=== PATIENT | female | born 1970 | race Two or more races ===

== ENCOUNTER 2020-02-08 09:34 | Outpatient (CLI) | payer MEDICAID ==
[~2020-02-08] VITALS: Ht 154.9 cm; Wt 67.2 kg
--- NOTE | 2020-02-08 13:15 | Consultation ---
DATE OF CONSULTATION: 02/08/2020 CONSULTING PHYSICIAN: Julio César Oden MD. CHIEF COMPLAINT: Lesion seen in the pancreas. HISTORY OF PRESENT ILLNESS: This is a 49-year-old female, had an episode of abdominal pain for which she had a CT of the abdomen and pelvis showed evidence of 12 mm lesion in the uncinate process, questionable for IPMN. So, the patient was referred to us for EUS. PAST MEDICAL HISTORY: Hypertension. PAST SURGICAL HISTORY: Cholecystectomy and x4. MEDICATIONS: Please see medication reconciliation list. FAMILY HISTORY: Father had leukemia. Mother had hypertension. SOCIAL HISTORY: The patient denies any tobacco, alcohol, or drug abuse. ALLERGIES: To cephalexin. REVIEW OF SYSTEMS: A 10-point review of systems was performed and pertinent positives in HPI. PHYSICAL EXAMINATION: VITAL SIGNS: Temperature 97.2, blood pressure 140/79, pulse 69, respirations 20. Height is 5 feet 1 inch, weight is 148. HEENT: Normocephalic, atraumatic. Sclerae anicteric. NECK: Supple. No evidence of obvious lymphadenopathy. CARDIOVASCULAR: Regular rate and rhythm. Plus S1-S2. LUNGS: Clear to auscultation bilaterally. ABDOMEN: Positive bowel sounds. Soft and nontender. No rebound. No guarding. No peritoneal sign. EXTREMITIES: No cyanosis, no clubbing, no edema. ASSESSMENT AND PLAN: This is a 49-year-old female with pancreatic cyst. Needs an EUS. The patient was informed of the risks and benefits of procedure. We will schedule her as soon as authorization is obtained. Julio César Oden M.D. DR: MARCELA JOB#: [id number] CC:
[2020-02-09 13:25] VITALS: BP 143/79
== END 2020-02-08 12:34 | disposition home or self-care (01) ==
LOC: PAN 09:34
DX: K86.2 Cyst of pancreas (principal); Z90.49 Acquired absence of other specified parts of digestive tract; I10 Essential (primary) hypertension
CPT/HCPCS: G0463